=== PATIENT | male | born 1965 | race Caucasian/White ===

== ENCOUNTER 2018-01-14 20:27 | Outpatient (CLI) | payer BC | END 2018-01-15 06:05 | disposition home or self-care (01) | LOC: SLEEP 20:27 | PROVIDERS: ATTEND Nurse Practitioner | DX: G47.33 Obstructive sleep apnea (adult) (pediatric) (principal); R06.83 Snoring; G47.10 Hypersomnia, unspecified; I10 Essential (primary) hypertension | CPT/HCPCS: 95811 ==

== ENCOUNTER → 2021-03-16 | Outpatient (CLI) | payer BC | LOC: CARD 15:00 | PROVIDERS: ATTEND Internal Medicine Cardiovascular Disease | DX: I51.7 Cardiomegaly (principal) | CPT/HCPCS: 93306 ==

== ENCOUNTER → 2021-03-17 | Outpatient (CLI) | payer BC ==
[~2021-03-17] VITALS: Ht 182 cm; Wt 128.0 kg
[~2021-03-17] MED LIST: CATHETER FLUSH 10 ML SYR IV PRN; REGADENOSON 0.4 MG/5 ML SYR (LEXISCAN) IV ONE
[2021-03-17 08:51] VITALS: BP 147/94
--- NOTE | 2021-03-17 15:31 | STRESS TEST ---
DATE OF SERVICE: 03/17/2021 RESTING AND POST REGADENOSON TECHNETIUM-99M TETROFOSMIN SPECT CT IMAGING ORDERING PHYSICIAN: Dr. Chang. PRIMARY PHYSICIAN: Dr. Adams. CLINICAL DIAGNOSIS: Shortness of breath. Baseline images were carried out after injection of 10.17 mCi of technetium-99m Tetrofosmin. This was followed by 0.4 mg Regadenoson and 29.3 mCi of technetium-99m Tetrofosmin for stress imaging. The electrocardiogram showed sinus rhythm at baseline. It did not change significantly with the Regadenoson infusion. Review of images at rest and following stress indicates a small reversible perfusion defect in the basal inferior wall. Gated images show normal global left ventricular systolic function with normal regional wall motion. Left ventricular ejection fraction is calculated to be 68%. Left ventricular end diastolic volume is 103 mL. CONCLUSIONS: 1. This study is suggestive of a small amount of basal inferior ischemia. 2. No significant regional wall motion abnormality. 3. Normal global left ventricular systolic function with a calculated ejection fraction of 68%. Job ID: [id number] DocumentID: [id number] Dictated Date: 03/17/2021 15:06:18 [employer] Date: 03/17/2021 15:30:26 Dictated By: MARLYN CHANG MD, MA, FACP, FACC,
== END ==
LOC: CARD 06:58
PROVIDERS: ATTEND Internal Medicine Cardiovascular Disease
DX: R06.02 Shortness of breath (principal)
CPT/HCPCS: 78452; 93017; A9502